=== PATIENT | male | born 1955 | race Caucasian/White ===

== ENCOUNTER → 2018-09-03 | Outpatient (CLI) | payer OTHER ==
[~2018-09-03] MED LIST: REGADENOSON 0.4 MG/5 ML DISP.SYRIN. IV ONE
--- NOTE | 2018-09-03 13:47 | PCVCIMAG ---
EXAM: BILATERAL CAROTID DUPLEX INDICATION: Carotid Occlusive Disease. FINDINGS: Doppler Measurements (centimeters per second): RIGHT: Peak CCA-105, Peak ECA-97, Diastolic ICA-32, Peak ICA-112, ICA/CCA Ratio-1.1. LEFT: Peak CCA-69, Peak ECA-75, Diastolic ICA-49, Peak ICA-110, ICA/CCA Ratio-1.6. RIGHT CAROTID: The carotid bulb has mild plaque. The proximal internal carotid artery shows <40% stenosis. The common carotid artery shows no significant stenosis. The external carotid artery shows no significant stenosis. LEFT CAROTID: The carotid bulb has mild plaque. The proximal internal carotid artery shows <40% stenosis. The common carotid artery shows no significant stenosis. The external carotid artery shows no significant stenosis. Antegrade flow in both vertebral arteries. IMPRESSION: <40% stenosis of the right internal carotid artery with mild plaque. <40% stenosis of the left internal carotid artery with mild plaque. LOC:[place] [id number]
--- NOTE | 2018-09-03 17:07 | PCVCIMAG ---
EXAM: ARTERIAL DUPLEX LEFT UPPER EXTREMITY INDICATION: Arm pain. FINDINGS: Left arm: Normal arterial waveforms throughout the subclavian, axillary, brachial, radial, and ulnar arteries. No evidence of flow-limiting arterial stenosis. Systolic blood pressure right arm 180 mmHg and left arm 180 mmHg. IMPRESSION: No flow limiting arterial stenosis left upper extremity is identified. LOC:[place] [id number]
--- NOTE | 2018-09-09 16:34 | PCVCIMAG ---
APPROVED REPORT Imaging Protocol: Rest Tc-99m/Stress Tc-99m 1 day Study performed: 09/03/2018 12:18:18 Indication: Aortic Ectasia Patient Location: Out-Patient Stress Nurse: Lana Brush RN, Bri James RN [place] Tech:Malina Brennanjose [facility] Ht: 6 ft 2 in Wt: 161 lbs BSA: 1.98 m2 HR: 74 bpm BP: 176/92 mmHg BMI: 20.6 Rhythm: Sinus Rhythm Medical History Medical History: Hyperlipidemia, COPD, Current Smoker Medications: Valsartan-HCTZ Allergies: Biaxin, Cephalexin, Clindamycin Cardiac Risk Factors: Age Pretest Chest Pain Characteristics: No chest pain Exercise History: Physically active Resting Data Rest SPECT myocardial perfusion imaging was performed in supine position 45 minutes following the intravenous injection of 10.8 mCi of Time of rest injection: 1145 Date: 09/03/2018 Administration Route: IV Administration Site: Right AC Pharmacologic Stress Pharmacologic stress test was performed by injecting Regadenoson 0.4 mg IV push over 10-15 seconds immediately followed by the intravenous injection of 34.3 mCi of Tc-99m Sestamibi. Time of stress injection: 1300 Date: 09/03/2018 Administration Route: IV Administration Site: Right AC Gated Stress SPECT was performed 45 minutes after stress injection. The images were gated to evaluate regional wall motion and calculate left ventricular ejection fraction. Stress Test Details Stress Test: Pharmacologic stress testing performed using 0.4 mg of regadenoson per 5 mL given IV over 10 seconds. Reason for pharmacologic stress test: physical limitation. HRMax Heart Rate (APMHR): 156 bpm Resting HR: 74 bpmTarget HR (85% APMHR): 132 bpm Max HR Achieved: 100 bpm % of APMHR: 64 Recovery HR: 84 bpm BP Resting BP: 176/92 mmHg Max BP: 138/70 mmHg Recovery BP: 142/80 mmHg ECG Resting ECG: Sinus Rhythm Stress ECG: Sinus Tachycardia ST Change: None Maximum ST Deviation: 0 mm Arrhythmia: None Recovery ECG: Sinus Rhythm Recovery ST Change: Normal Recovery ST Deviation: 0 mm Recovery Arrhythmia: None Clinical Reason for Termination: Completed protocol Stress Symptoms: Chest pressure Exercise duration: min 55 sec Symptoms resolved with caffeine. Stress ECG Conclusion ECG: Non-ischemic Clinical: Non-ischemic Study Quality Study: Good Study Data Post stress, the left ventricular ejection was 67%.. SSS: 0 SRS: 0 SDS: 0 TID = 0.95. Perfusion No evidence of stress induced ischemia or prior myocardial infarction. Wall Motion Normal left ventricular size and function with no regional wall motion abnormalities. Nuclear Conclusion No evidence of stress induced ischemia or prior myocardial infarction. Normal left ventricular size and function with no regional wall motion abnormalities. Post stress, the left ventricular ejection was 67%. No prior study available for comparison. Interpreted by: Ishmael Cruz MD Electronically Approved: 09/03/2018 15:42:46 <Conclusion> ECG: Non-ischemic Clinical: Non-ischemic
== END | disposition home or self-care (01) ==
LOC: PCVCIMAG 10:08
PROVIDERS: ATTEND Internal Medicine
DX: I65.23 Occlusion and stenosis of bilateral carotid arteries (principal); Z88.1 Allergy status to other antibiotic agents
CPT/HCPCS: 78452; 93017; 93880; 93931; A9500; J2785